=== PATIENT | female | born 1940 | race Caucasian/White ===

== ENCOUNTER 2018-05-24 13:36 | Outpatient (CLI) | payer OTHER | END 2018-05-24 14:30 | LOC: RAD 13:36 | PROVIDERS: ATTEND Family Medicine | DX: Z78.0 Asymptomatic menopausal state (principal); Z13.9 Encounter for screening, unspecified | CPT/HCPCS: 77080 ==

== ENCOUNTER 2019-01-01 13:09 | Outpatient (CLI) | payer OTHER | END 2019-01-11 13:14 | disposition home or self-care (01) | LOC: RAD 13:09 | PROVIDERS: ATTEND Family Medicine | DX: M79.651 Pain in right thigh (principal) | CPT/HCPCS: 73502; 93971 ==